=== PATIENT | female | born 1955 | race Caucasian/White ===

== ENCOUNTER 2024-01-24 22:32 | Emergency (ER) | payer OTHER, MEDICAID ==
[~2024-01-24] VITALS: Ht 165.1 cm; Wt 132.0 kg
[2024-01-24 22:45] VITALS: BP_SYST 158; PULSE 84; RESP 19; TEMP 97.9; O2SAT 95
[2024-01-25 00:31] LABS: BILIRUBIN,URINE NEGATIVE (NEGATIVE); COLOR,URINE YELLOW (YELLOW); GLUCOSE,URINE NEGATIVE (NEGATIVE); KETONES,URINE NEGATIVE (NEGATIVE); NITRITE, URINE NEGATIVE (NEGATIVE); PH,URINE 6.5 (5.0-8.0); PROTEIN URINE 2+ (NEGATIVE); UROBILINOGEN,URINE 0.2 (0.2-1.0)
[2024-01-25] MEDS: HYDROcodone/ACETAMIN 5-325 MG TAB (NORCO/ VICODIN) PO ONE ×2 (00:33→06:14)
[2024-01-25 00:34] LABS: BASOPHILS # (AUTO) 0.1 K/uL (0.0-0.2); BASOPHILS % (AUTO) 0.7 % (0.0-2.0); EOSINOPHILS # (AUTO) 0.2 K/uL (0.0-0.4); EOSINOPHILS % (AUTO) 1.4 % (0.0-4.0); HEMATOCRIT 36.1 % (36-48); HEMOGLOBIN 12.2 g/dL (12.0-16.0); LYMPHOCYTES % (AUTO) 36.5 % (20.5-51.5); MEAN CORPUSCULAR HEMOGLOBIN 29 pg (27-31); MEAN CORPUSCULAR HGB CONC 34 % (32-36); MEAN CORPUSCULAR VOLUME 85 fL (79.0-98.0); MONOCYTES # (AUTO) 0.8 K/uL (0.0-1.0); MONOCYTES % (AUTO) 5.7 % (1.7-9.3); NEUTROPHILS # (AUTO) 7.7 K/uL (1.8-7.7); NEUTROPHILS % (AUTO) 55.7 % (40.0-70.0); PLATELET COUNT (AUTO) 294 K/uL (130-430); RED BLOOD CELL COUNT(AUTO) 4.26 MIL/uL (4.2-6.2); RED CELL DISTRIBUTION WIDTH 14.8 % (9.0-15.0); WHITE BLOOD COUNT (AUTO) 13.8 K/uL (4.8-10.8)
[2024-01-25 00:38] LABS: BLOOD, URINE TRACE (NEGATIVE); LEUKOCYTE ESTERASE ,URINE TRACE (NEGATIVE)
[2024-01-25 00:39] LABS: CLARITY/URINE SLIGHTLY CLOUDY (CLEAR)
[2024-01-25 00:39] LABS: CALCIUM 8.6 mg/dL (8.4-11.0); CREATININE 0.83 mg/dL (0.55-1.30); POTASSIUM 3.9 mmol/L (3.5-5.1)
[2024-01-25 00:45] LABS: BACTERIA,URINE MODERATE /HPF (None Seen)
[2024-01-25] MEDS: amLODIPine BESYLATE 10 MG TABLET PO ONE (01:08)
[2024-01-25] MEDS ORDERED: cloNIDine HCL 0.1 MG TABLET ONE (02:57)
[2024-01-25] MEDS: cloNIDine HCL 0.1 MG TABLET PO ONE (04:01)
[2024-01-25] MEDS: hydrALAZINE HCL 20 MG/ML VIAL IVP ONE (05:12)
[2024-01-25 06:06] VITALS: RESP 19; TEMP 98; O2SAT 98
[2024-01-25] MEDS: LOSARTAN POTASSIUM 25 MG TABLET PO ONE (06:14)
[2024-01-25] MEDS ORDERED: LOSARTAN POTASSIUM 25 MG TABLET ONE (06:24)
[2024-01-25 07:07] VITALS: BP_SYST 153; PULSE 60
== END 2024-01-25 06:31 | disposition home or self-care (01) ==
LOC: SED 22:32
DX: Z00.8 Encounter for other general examination (principal); I16.0 Hypertensive urgency; R41.82 Altered mental status, unspecified; Z79.899 Other long term (current) drug therapy
CPT/HCPCS: 99285; 74176; 80048; 81001; 85025; 87086; 36415; 82948; 81000; 96374; 81015; J0360; 87186